=== PATIENT | male | born 1970 | race Caucasian/White ===

== ENCOUNTER 2021-06-21 12:42 | Emergency (ER) | payer SELFPAY ==
[~2021-06-21] VITALS: Ht 152.4 cm; Wt 49.9 kg
--- NOTE | 2021-06-21 12:55 | NUR ---
To ER bed 15, [id number], from street, weak, BS 66 given oral glucose bs re-checked 71, aaox3, breathing even and non labored
[2021-06-21 13:21] LABS: BASOPHILS # (AUTO) 0.1 K/uL (0.0-0.2); BASOPHILS % (AUTO) 1.4 % (0.0-2.0); EOSINOPHILS % (AUTO) 0.4 % (0.0-6.0); HEMATOCRIT 37 % (39-51); HEMOGLOBIN 11.8 g/dL (13.5-17.5); LYMPHOCYTES # (AUTO) 1.6 K/uL (0.8-4.8); LYMPHOCYTES % (AUTO) 23.1 % (20.0-44.0); MEAN CORPUSCULAR HGB CONC 32 g/dl (31.0-36.0); MEAN CORPUSCULAR VOLUME 88 fL (80-96); MONOCYTES # (AUTO) 0.6 K/uL (0.1-1.30); MONOCYTES % (AUTO) 9.3 % (2.0-12.0); NEUTROPHILS # (AUTO) 4.6 K/uL (1.8-8.9); NEUTROPHILS % (AUTO) 65.8 % (43.0-81.0); PLATELET COUNT (AUTO) 442 K/uL (150-450); RED BLOOD CELL COUNT(AUTO) 4.18 MIL/uL (4.5-6.0); WHITE BLOOD COUNT (AUTO) 6.9 K/uL (4.3-11.0)
[2021-06-21 13:28] LABS: CALCIUM, SERUM 8.5 mg/dL (8.5-10.1); CARBON DIOXIDE 22 mmol/L (21-32); CHLORIDE 104 mmol/L (98-107); CREATININE 0.7 mg/dL (0.6-1.3); GLUCOSE 86 mg/dL (74-106); POTASSIUM 3.8 mmol/L (3.5-5.1); SODIUM SERUM 138 mmol/L (136-145); UREA NITROGEN, BLOOD 16 mg/dL (7-18)
[2021-06-21 13:34] LABS: ALANINE AMINOTRANSFERASE 32 U/L (12-78); ALBUMIN 3.5 g/dL (3.4-5.0); ALCOHOL, BLOOD < 3 mg/dL (0-0); ALKALINE PHOSPHATASE 114 U/L (46-116); ASPARTATE AMINOTRANSFERASE 29 U/L (15-37); BILIRUBIN,DIRECT 0.1 mg/dL (0.0-0.2); BILIRUBIN,TOTAL 0.4 mg/dL (0.2-1.0)
[2021-06-21 13:35] LABS: ACETAMINOPHEN 0 ug/ml (10-30)
--- NOTE | 2021-06-21 13:45 | NUR ---
LISBETH CALLED WILL COME AFTER LUNCH
--- NOTE | 2021-06-21 14:06 | NUR ---
UNABLE TO PROVIDE URINE AT THIS TIME
--- NOTE | 2021-06-21 14:22 | NUR ---
"SS Consult: SS consult for homelessness. Pt. Is a 52-year-old White Male. Pt. demonstrates adequate insight to the reason for hospitalization. Per pt., he was brought to hospital by ambulance due to passing out. Per pt., he passed out on the streets and someone called an ambulance for him. Pt. was oriented x2, alert, and was not cooperative. During interview, pt. did not make appropriate eye-contact, and did not appeared well-groomed. SW explored pt.'s Hx of mental health and substance abuse. Pt. reported no Hx of mental health, SI/HI, denied AH/VH, paranoia or delusions. SW explored pt.'s living situation. Per pt., he lives on the streets and has been to shelters in the past. Per pt., he reports having no adequate support. SW provided pt. with homeless resources and pt. accepted. Pt. was willing to sign Homeless Waiver and SW provided pt. with Tap Card. Plan: SW provided available resources and pt. accepted. SW provided pt. with a Tap Card. Pt. mentioned that he will use the resources once discharged from hospital. Once discharge, per pt., he will return to the streets. Resources Provided: Year-round shelters: [facility] [address] [place] [address] ; [facility] [address] [place] [address]; [facility] Ibinlua6093 [facility] [address] Winter Shelters: [facility] Provider: [facility] Address: [address] [facility], [address] # of Beds: 47 Population Served: [facility] 6 | [facility] Maura Rachel Hurdland Provider: [facility] Address: [address] [place] [address], [address] # of Beds: 66 Population Served: [facility] [place] Provider: [facility] Address: [address] [facility], [address] # of Beds: 56 Population Served: [facility] [place] Provider: /[facility] Address: [address] [facility], [address] # of Beds: 49 Population Served: [facility] 8 | [facility] [place] Provider: [facility] Address: [address] [place], [place] [address]Erin Boo, [address] # of Beds: 37 Population Served: [facility] Hygiene: [facility]: [address] [place] ; [facility] [address] [facility] ; [facility] [place] [address], [place] . Food Resources: [place] [facility] at [facility]- 4260 [facility]; Meet Each Need with Dignity ([facility]) [address] [facility]; [facility] Food [facility] 4372 [facility]; [facility] 1850 [facility]. Mental Health resources provided: [facility] [address] [place], [place] [phone] ; [facility] [place] [address] [facility] [address], [place], [place] [phone] ; [facility] [address] [place], [place] [phone] ; [facility] [place], [place] [phone] Healthcare Clinics: [facility] [address] [facility], [address] [place]. [place] ; [facility] [address] [facility] [address] [place] [address]; [facility] [address] [place]. [place] [phone] Counseling--Outpatient [facility] [address] [facility], [place] [address] (Specializes in in-depth psychotherapy for emotional distress: anxiety, depression, interpersonal conflicts, life transitions, childhood abuse) [facility] [address] [place] [address] (Assist with solving problem marital difficulties, separation & divorce, aging parents, & grief, chronic & terminal illness) [facility] [address] [place] [address] (Deal with loss & grief, anxiety, marital difficulties) Homebound/Mental Health Services [address], [address] [place] [address] (Provide in-home mental services to people who are incapable of leaving their homes) Organization for Needs of the Elderly Senior Service/Resource Center [address] [place] [address] [facility] [address] [place] [address] "
--- NOTE | 2021-06-21 14:56 | NUR ---
Patient discharged to home in stable condition. Written and verbal after care instructions given. Patient verbalizes understanding of instruction.
[2021-06-21 15:08] VITALS: BP 108/63
== END 2021-06-21 15:09 | disposition home or self-care (01) ==
LOC: EDBD → ER 12:44
DX: R53.1 Weakness (principal); Z59.00 Homelessness unspecified
CPT/HCPCS: 36415; 80048-TC; 80076-TC; 85025-TC; G0480

== ENCOUNTER 2021-06-24 07:04 | Emergency (ER) | payer SELFPAY ==
[~2021-06-24] VITALS: Ht 165.1 cm; Wt 59.0 kg
[2021-06-24 07:08] VITALS: BP 124/76
--- NOTE | 2021-06-24 08:07 | NUR ---
CALLED MEDICAL STAFF COORDINATOR FOR PT
--- NOTE | 2021-06-24 08:25 | NUR ---
SS Consult: SS Consult requested for homelessness & Hx. of polysubstance abuse. The pt. is a 51-year old male who was BIBRA because he was found next to his wheelchair covered in feces. The pt. appears unkempt is A&O X4 and makes good eye contact. The pt. is restless with anxious mood & affect. Pt. denies hallucinations and denies SI/ HI. SW explored pt.s mental health Hx. Pt. states he suffers from depression. SW explored pt.s dug & ETOH Hx. Patient stated he uses Methamphetamine weekly. SW provided addiction resources and he accepted them. SW offered to refer him to rehab facility and pt. refused. SW explored pt.s living situation. Pt. admits he has been experiencing homelessness for the past 8 months". Pt. has wheelchair at bedside. SW explored pt.s support system. Pt. states he has no support system. Pt. states he receives SSI. Plan: Pt. stated he would like to be discharged to self when medically cleared. Pt. stated he would like to "The street". Pt. signed homeless waiver and it was placed in the chart. SW provided pt. with homeless, and addiction resources and he accepted them : Year-round shelters: [facility] [address] [place] [address] ; [facility] [address] [place] [address]; [facility] [place] [facility] Yuirezf8823 [facility] [address] Winter Shelters: [place] Joellen Bueno Provider: [facility] Address: [address] [place] [address], [address] # of Beds: 47 Population Served: [facility] 6 | [facility] Maura Rachel [place] Provider: [facility] Address: [address], [address] # of Beds: 66 Population Served: [facility] [place] Provider: [facility] Address: [address] [facility], [address] # of Beds: 56 Population Served: [facility] [place] Provider: / [facility] Address: [address] [facility] [address] # of Beds: 49 Population Served: [facility] 8 | [facility] [place] Provider: [facility] Address: [address] [facility] System[facility]rin Boo [address] # of Beds: 37 Population Served: [facility]: [facility]: [address] [place] ; [facility] [address] [facility] ; [facility] [address], [place] . Food Resources: [place] [facility] at [facility]- 4790 [facility]; Meet Each Need with Dignity ([facility]) [address] [facility]; [facility] Food Pantry 8612 [facility]; [facility] 8724 [facility]. Mental Health resources provided: [facility] [address] [place], [place] [phone] ; [facility] Mental Health [place] [address] [facility] [address], [place], [place] [phone] ; [facility] [address] [place], [place] [phone] ; [facility] [place], [place] [phone] Healthcare Clinics: [facility] [address] [facility], [address] [place]. [place] ; [facility] [address] [facility] [address] [place] [address]; [facility] [address] [facility]. [place] [phone] Counseling--Outpatient [facility] [address] [facility], [place] [address] (Specializes in in-depth psychotherapy for emotional distress: anxiety, depression, interpersonal conflicts, life transitions, childhood abuse) [facility] [address] [place], [place] [address] (Assist with solving problem marital difficulties, separation & divorce, aging parents, & grief, chronic & terminal illness) [facility] [address] [place], [place] [address] (Deal with loss & grief, anxiety, marital difficulties) Homebound/Mental Health Services [address] [facility] [address] [place], [place] [address] (Provide in-home mental services to people who are incapable of leaving their homes) Organization for Needs of the Elderly Senior Service/Resource Center [address] [place] [address] [facility] [address] [place] [address] PSYCHIATRIC OUTPATIENT SERVICES [facility] Partial Hospitalization and Intensive Outpatient Program (Managed Care and [place] Only)[address] [facility] [place] [facility] [phone] [facility] Partial Hospitalization and Outpatient Ueljsob72983 [facility] [address] [place], [place] [phone] [facility] [place] Hgq88499 [facility] [address] [place], [place] [phone] [facility] Partial Hospitalization and Outpatient Datgaxf36012 [place], [phone] Substance Abuse resources provided included: [facility] Substance Abuse Self-Helpline (SAS) ; CRI -HELP [address] [facility]. [place] [address] ; [facility] [address] [facility] [address] ; [facility] [address] [facility] [address] ; [address] Anaid [place] [phone] ; [facility] 4940 Cristofer Alberto [facility] [address] ; [facility] [address] [facility] [address] ; [facility] Substance Abuse Helpline(SAS)-[facility] ; [facility] ; [facility] [place]; [facility] [place]; [facility] [place]; I-[facility] Recovery rCistofer [place]to; [place] [facility]; [facility]; [facility] Ronan; [facility]. [place]i Bueno; Alcoholics Anonymous -SFV; Yu-Ltsu-Sovagzb ; Marijuana Anonymous -SFV; Narcotics Anonymous www.[email or web address];
--- NOTE | 2021-06-24 09:12 | NUR ---
Patient given written and verbal discharge instructions. Patient verbalizes understanding of instructions. Patient is ambulatory with steady gait. Refuses offer of prison placement. Patient given list of available shelters in surrounding area.
== END 2021-06-24 09:14 | disposition home or self-care (01) ==
LOC: EDBD 07:07 → ER 07:07
DX: G35 Multiple sclerosis (principal); Z59.00 Homelessness unspecified